=== PATIENT | female | born 1965 | race Caucasian/White ===

== ENCOUNTER 2021-07-07 11:28 | Emergency (ER) | payer BC, MEDICAID ==
[~2021-07-07] VITALS: Ht 165.1 cm; Wt 71.2 kg
[~2021-07-07 11:28] MED LIST: DSS/1TAB3 PO
[2021-07-07 11:48] VITALS: BP 138/85
--- NOTE | 2021-07-07 12:40 | NUR ---
Patient to RAD via WC
--- NOTE | 2021-07-07 12:40 | NUR ---
Lab drawing at chair A
--- NOTE | 2021-07-07 12:45 | NUR ---
Patient returned from RAD
--- NOTE | 2021-07-07 12:49 | NUR ---
Patient ambulated to bed 02.
--- NOTE | 2021-07-07 12:50 | NUR ---
56 Y/O FEMALE BIB SELF C/O ABD PAIN AND CHEST PAIN FOR 8 DAYS. PT DENIES ANY NAUSEA/VOMITING/DIARRHEA. 9/10 PAIN. PT DENIES ANY AGGREVATING OR ALLEVIATING FACTORS. PT DENIES MEDICAL HISTORY OR TAKING ANY MEDICATIONS. PT IS ALERT AND ORIENTED X4. BED IN LOWEST POSITION. BED RAIL X1. MEDHX: DENIES NKA
[2021-07-07 12:55] LABS: EOSINOPHILS # (AUTO) 0.1 K/uL (0-0.4); EOSINOPHILS % (AUTO) 2.6 % (0.0-4.0); HEMATOCRIT 37.4 % (36-48); HEMOGLOBIN 12.4 g/dL (12.0-16.0); LYMPHOCYTES # (AUTO) 1.4 K/uL (2.5-16.5); LYMPHOCYTES % (AUTO) 33.8 % (20.5-51.1); MEAN CORPUSCULAR HEMOGLOBIN 28 pg (27-31); MEAN CORPUSCULAR HGB CONC 33 g/dL (33-37); MEAN CORPUSCULAR VOLUME 83.7 fL (80-94); MONOCYTES # (AUTO) 0.4 K/uL (0.8-1.0); MONOCYTES % (AUTO) 9.2 % (1.7-9.3); NEUTROPHILS # (AUTO) 2.2 K/uL (1.8-7.7); NEUTROPHILS % (AUTO) 53.4 % (42.2-75.2); PLATELET COUNT (AUTO) 250 K/uL (140-450); RED BLOOD CELL COUNT(AUTO) 4.47 MIL/uL (4.20-5.40); RED CELL DISTRIBUTION WIDTH 15.1 % (11.6-13.7)
[2021-07-07] MEDS ORDERED: DICYCLOMINE HCL LIQUID 20 MG, ALUMINUM HYD/MAG/SIMETHICONE 30 ML, LIDOCAINE VISCOUS 2% ... PO ONE ×3 (13:20)
[2021-07-07] MEDS ORDERED: ALUMINUM HYD/MAG/SIMETHICONE 30 ML UDC ONE (13:25)
[2021-07-07] MEDS ORDERED: DICYCLOMINE HCL LIQUID 10 MG/5 ML UDC ONE (13:25)
[2021-07-07 13:46] LABS: ALBUMIN 3.7 g/dL (3.4-5.0); ASPARTATE AMINOTRANSFERASE 19 U/L (15-37); CARBON DIOXIDE 27.7 mmol/L (21-32); CHLORIDE 107 mmol/L (98-107); CREATININE 0.7 mg/dL (0.6-1.3); GFR ARICAN-AMERICAN 112 mL/min (>90); GLUCOSE 129 mg/dL (74-106); LIPASE 67 U/L (73-393); POTASSIUM 3.7 mmol/L (3.5-5.1); SODIUM SERUM 142 mmol/L (136-145); TOTAL BILIRUBIN 0.3 mg/dL (0.0-1.0); UREA NITROGEN, BLOOD 9 mg/dL (7-18)
[2021-07-07 13:59] VITALS: BP 125/76
[2021-07-07] MEDS ORDERED: OMEP40EC24 PO (14:28)
[2021-07-07] MEDS ORDERED: IBUP-2213 PO (14:28)
--- NOTE | 2021-07-07 14:35 | NUR ---
Patient discharged with v/s stable. Written and verbal after care instructions given and explained for GERD, Adult. Patient alert, oriented and verbalized understanding of instructions. Ambulatory with steady gait. All questions addressed prior to discharge. ID band removed. Patient advised to follow up with PMD. Rx of Prilosec, Ibuprofen given. Patient educated on indication of medication including possible reaction and side effects. Opportunity to ask questions provided and answered.
== END 2021-07-07 14:35 | disposition home or self-care (01) ==
LOC: MED 11:28
DX: R10.13 Epigastric pain (principal); R07.9 Chest pain, unspecified; R06.02 Shortness of breath; Z79.899 Other long term (current) drug therapy; Z98.890 Other specified postprocedural states
CPT/HCPCS: 36415; 71045; 80053; 81002; 81025; 83690; 84484; 85025; 93005; 99285

== ENCOUNTER 2022-12-09 21:45 | Emergency (ER) | payer MEDICAID, OTHER ==
[~2022-12-09] VITALS: Ht 165.1 cm; Wt 74.4 kg
[2022-12-09 21:45] VITALS: BP 117/76; PULSE 72; RESP 16; TEMP 98; O2SAT 99
[~2022-12-09 21:45] MED LIST changes: +IBUP-2213 PO; +OMEP40EC24 PO
[2022-12-09 22:40] LABS: BASOPHILS # (AUTO) 0.1 K/uL (0.00-0.22); EOSINOPHILS # (AUTO) 0.1 K/uL (0-0.4); EOSINOPHILS % (AUTO) 1.1 % (0.0-4.0); HEMATOCRIT 39.1 % (36-48); HEMOGLOBIN 13.2 g/dL (12.0-16.0); LYMPHOCYTES # (AUTO) 1.5 K/uL (2.5-16.5); LYMPHOCYTES % (AUTO) 27.6 % (20.5-51.1); MEAN CORPUSCULAR HEMOGLOBIN 28 pg (27-31); MEAN CORPUSCULAR HGB CONC 34 g/dL (33-37); MEAN CORPUSCULAR VOLUME 83.1 fL (80-94); MONOCYTES # (AUTO) 0.3 K/uL (0.8-1.0); MONOCYTES % (AUTO) 6.5 % (1.7-9.3); NEUTROPHILS # (AUTO) 3.4 K/uL (1.8-7.7); NEUTROPHILS % (AUTO) 63.8 % (42.2-75.2); PLATELET COUNT (AUTO) 249 K/uL (140-450); RED CELL DISTRIBUTION WIDTH 15.2 % (11.6-13.7); WHITE BLOOD COUNT (AUTO) 5.3 K/uL (4.8-10.8)
[2022-12-09 23:01] LABS: ALBUMIN 4.2 g/dL (3.4-5.0); ANION GAP 11.3 (8-16); CALCIUM 9.6 mg/dL (8.5-10.1); CARBON DIOXIDE 26.3 mmol/L (21-32); CREATININE 0.7 mg/dL (0.6-1.3); POTASSIUM 3.6 mmol/L (3.5-5.1); TOTAL BILIRUBIN 0.5 mg/dL (0.0-1.0); TOTAL PROTEIN, SERUM 7.9 g/dL (6.4-8.2)
[2022-12-10] MEDS ORDERED: ASPIRIN 325 MG TAB PO ONE (02:35)
[2022-12-10] MEDS ORDERED: IBUP-2213 PO (06:51)
[2022-12-10 08:06] VITALS: BP 111/53; PULSE 51; RESP 16; TEMP 98; O2SAT 98
== END 2022-12-10 08:06 | disposition home or self-care (01) ==
LOC: MED 21:45
DX: R07.9 Chest pain, unspecified (principal); Z79.899 Other long term (current) drug therapy; Z79.1 Long term (current) use of non-steroidal anti-inflammatories (NSAID)
CPT/HCPCS: 36415; 71045; 71275; 80053; 83880; 84484; 85025; 85379; 93005; 99285; Q9967